=== PATIENT | female | born 1935 | race African-American/Black ===

== ENCOUNTER 2018-11-15 20:05 | Emergency (ER) | payer MEDICARE, MEDICAID ==
[~2018-11-15] VITALS: Ht 175.3 cm; Wt 77.0 kg
[2018-11-15] MEDS ORDERED: CALCIUM CHLORIDE 1GM/10ML SYR IV ONE (20:36)
[2018-11-15] MEDS ORDERED: SODIUM BICARBONATE 8.4% MEQ/ML 50ML VIAL IV ONE (20:36)
[2018-11-15] MEDS ORDERED: VECURONIUM BROMIDE 10 MG/VIAL IV ONE ×2 (20:36→21:15)
[2018-11-15] MEDS ORDERED: EPINEPHRINE 0.1MG/ML (1:10,000) 10ML SYR ONE ×2 (20:36→21:55)
[2018-11-15] MEDS ORDERED: ETOMIDATE 2MG/ML 10ML VIAL IV ONE ×2 (20:36→21:15)
[2018-11-15] MEDS ORDERED: SODIUM CHLORIDE 0.9% 10ML VIAL ONE (20:36)
[2018-11-15] MEDS ORDERED: DOPAMINE 400MG/250ML PREMIX 250 ML IV STA (21:02)
[2018-11-15] MEDS ORDERED: DOPAMINE 400MG/250ML PREMIX 250 ML IV ONE (21:03)
[2018-11-15] MEDS ORDERED: VANCOMYCIN 1 G PREMIX 200 ML IV ONE (21:15)
[2018-11-15] MEDS ORDERED: PROPOFOL 10MG/ML 100ML 100 ML IV ONE (21:15)
[2018-11-15] MEDS ORDERED: HYDROCORTISONE SOD SUCCINATE 100 MG/2 ML VIAL IV ONE (21:15)
[2018-11-15] MEDS ORDERED: SODIUM CHLORIDE 0.9% 1000ML BAG (SEPSIS BOLUS) IV ONE (21:15)
[2018-11-15] MEDS ORDERED: PIPERACILLIN/TAZ 3.375G PREMIX 50 ML IV ONE (21:15)
[2018-11-15 21:18] LABS: MEAN CORPUSCULAR HEMOGLOBIN 30.4 pg (28.0-32.0); MEAN CORPUSCULAR VOLUME 95.1 fL (81.0-99.0); MEAN PLATELET VOLUME 8.7 fl (7.4-10.4); PLATELET 264 x1000/uL (130-400); RED BLOOD CELL COUNT 0.81 mill/uL (4.2-5.4); RED CELL DISTRIBUTION WIDTH 14.6 % (11.6-14.6)
[2018-11-15 21:21] LABS: INR 1.2; PROTHROMBIN TIME 12.2 sec (9.6-11.0)
[2018-11-15 21:23] LABS: CHLORIDE 107 mEq/L (98-107); HEMATOCRIT. 7.7 % (36.0-48.0); HEMOGLOBIN. 2.5 g/dL (12.0-16.0)
[2018-11-15 21:27] LABS: ETHANOL BLOOD < 10 mg/dL
[2018-11-15 21:30] LABS: LDL CHOLESTEROL 31 mg/dL (5-100)
[2018-11-15 21:45] VITALS: BP 65/23
[2018-11-15] MEDS ORDERED: SODIUM BICARBONATE 8.4% 1 MEQ/ML 50ML SYR IV ONE (21:57)
[2018-11-15] MEDS ORDERED: SODIUM BICARBONATE 150 MEQ in SODIUM CHLORIDE 0.45% 1,000 ML IV SCH (22:00)
[2018-11-15] MEDS ORDERED: INSULIN REGULAR (HUMULIN R) 300UNITS/3ML ONE (22:02)
[2018-11-15 22:35] LABS: PLATELET ESTIMATE NORMAL
== END 2018-11-16 00:14 | disposition expired ==
LOC: ER 20:05 → EDBEDREQ 21:08 → CANBEDREQ 22:32 → ER 11-16 00:14
DX: A41.9 Sepsis, unspecified organism (principal); I46.9 Cardiac arrest, cause unspecified; I12.9 Hypertensive chronic kidney disease with stage 1 through stage 4 chronic kidney disease, or unspecified chronic kidney disease; N18.9 Chronic kidney disease, unspecified; E87.5 Hyperkalemia; D64.89 Other specified anemias; K21.9 Gastro-esophageal reflux disease without esophagitis; E03.9 Hypothyroidism, unspecified; Z98.890 Other specified postprocedural states; Z90.5 Acquired absence of kidney; Z96.641 Presence of right artificial hip joint
CPT/HCPCS: 31500; 36415; 36556; 70450; 80053; 80320; 82962; 83605; 83721; 83880; 84145; 84484; 85025; 85610; 86850; 86900; 86901; 86920; 87040; 92950; 96374; 96375; 99291; J1265; J1720; J1815; J2543; J3370; J3490; J7030; 94002; 94660; G0480